=== PATIENT | female | born 1975 | race Caucasian/White ===

== ENCOUNTER → 2018-05-30 07:52 | Day surgery (SDC) | payer BC ==
[~2018-05-30 07:52] MED LIST: Buffered Lidocaine 1% SYRIN* 1 ML/SYRINGE INTRADERM ONE; Dexamethasone IV* 4 MG/ML 1 ML (4 MG) ONE; Ketorolac INJ* 30 MG/ML 1 ML VIAL ONE; Lactated Ringers 1000 ML Bag* 1,000 ML IV SCH; Midazolam* 1 MG/ML 5 ML VIAL (5 MG) ONE; Ondansetron INJ* 2 MG/ML VIAL ONE; Propofol* 10 MG/ML 20 ML BTL ONE; Silver Nitrate/Potassium Nitr* 1 EA STICK ONE; fentaNYL* 50 MCG/ML 2 ML VIAL (100 MCG VIAL) ONE; oxyCODONE/Acetamin 5/325 MG* TAB PO PRN
[2018-05-30 09:01] LABS: Hematocrit 44 % (35-47); Hemoglobin 14.9 g/dl (12.0-16.0); Mean Corpuscular HGB Conc 34 g/dl (31-36); Mean Corpuscular Hemoglobin 30 pg (27-31); Mean Corpuscular Volume 90 fL (80-97); Mean Platelet Volume 8.6 fL (7.4-10.4); Platelet Count 260 10^3/ul (150-450); Red Cell Distribution Width 13 % (10.5-15); White Blood Count 5.9 10^3/ul (3.5-10.8)
--- NOTE | 2018-05-30 11:21 | OP ---
CC: [facility] OPERATIVE REPORT: DATE OF OPERATION: 05/30/18 DATE OF : 73 SURGEON: Herbert Cervantes M.D. ANESTHESIOLOGIST: Dr. Blair. ANESTHESIA: General endotracheal anesthesia. PRE-OP DIAGNOSES: 1. Menorrhagia. 2. Thickened endometrium, on ultrasound. POST-OP DIAGNOSES: 1. Menorrhagia. 2. Thickened endometrium, on ultrasound. OPERATIVE PROCEDURE: Dilation, hysteroscopy, MyoSure polypectomy, curettage. ESTIMATED BLOOD LOSS: Minimal, less than 20 cc. FINDINGS: Small anteverted uterus. No adnexal masses palpated. There was a polyp towards the fundu s connected to the right uterine wall and there appeared to be other small polyps. COMPLICATIONS: None. COUNTS: Sponge, lap, and needle counts were correct x2. CONDITION: The patient was brought to recovery room awake, in stable condition. DESCRIPTION OF PROCEDURE: The patient was brought to the operating room. When general anesthesia wa s found to be adequate, the patient was prepped and draped in the usual sterile fashion in the dorsal lithotomy position. A time-out was performed. Exam under anesthesia was performed. Weighted specu lum was placed in the vagina. The anterior lip of the cervix was grasped with a single-tooth tenacul um and the cervix was gently and easily dilated with graduated Armenta dilators. The MyoSure hysterosc ope was introduced with the above findings noted. The MyoSure was used to remove the polyp in its ent irety. The endometrium then appeared normal. Curettage was performed. The tenaculum was removed. Excellent hemostasis was noted. All instruments were removed from the vagina and the patient was bro ught to the recovery room, awake, and in stable condition. [id number]/[facility] #: [id number]
[2018-05-30 11:41] VITALS: BP 117/70
== END | disposition home or self-care (01) ==
LOC: OR 07:52
PROVIDERS: ATTEND Obstetrics & Gynecology
DX: N92.0 Excessive and frequent menstruation with regular cycle (principal); N84.0 Polyp of corpus uteri; Z88.0 Allergy status to penicillin
CPT/HCPCS: 36415; 81025; 85027; 86850; 86900; 86901; 88305; A9270-GY; J1100; J1885; J2250; J2405; J2704; J3010